=== PATIENT | female | born 1980 | race Caucasian/White ===

== ENCOUNTER 2020-04-24 10:50 | Outpatient (CLI) | payer BC ==
--- NOTE | 2020-04-24 11:23 | ULT ---
EXAM: Left lower extremity venous Doppler US HISTORY: left lower extremity edema and pain FINDINGS: Grayscale, color-flow, Doppler evaluation, spectral analysis of the left lower extremity venous struc tures is performed with 2-D imaging. The left common femoral, superficial femoral, popliteal, posterior tibial, proximal greater saphenous and profunda femoral veins are imaged. There is normal luminal compressibility, flow, and augmentation the visualized deep venous structures of the left lower extremity. IMPRESSION: No evidence of a deep vein thrombosis in the left lower extremity.
== END 2020-04-24 10:51 | disposition home or self-care (01) ==
LOC: BICULT 10:50
PROVIDERS: ATTEND Family Medicine
DX: M79.89 Other specified soft tissue disorders (principal); R79.89 Other specified abnormal findings of blood chemistry

== ENCOUNTER 2020-10-02 07:43 | Outpatient (CLI) | payer BC | END 2020-10-02 07:44 | disposition home or self-care (01) | LOC: BICMRI 07:43 | PROVIDERS: ATTEND Family Medicine | DX: M51.16 Intervertebral disc disorders with radiculopathy, lumbar region (principal); M48.07 Spinal stenosis, lumbosacral region; M51.27 Other intervertebral disc displacement, lumbosacral region | CPT/HCPCS: 72148 ==

== ENCOUNTER 2024-08-29 08:35 | Outpatient (CLI) | payer BC | END 2024-08-29 08:36 | disposition home or self-care (01) | LOC: BICMRI 08:35 | DX: G35 Multiple sclerosis (principal); R90.89 Other abnormal findings on diagnostic imaging of central nervous system | CPT/HCPCS: 70551 ==

== ENCOUNTER 2025-05-17 12:53 | Outpatient (CLI) | payer BC | END 2025-05-17 12:54 | disposition home or self-care (01) | LOC: BICMRI 12:53 | PROVIDERS: ATTEND Psychiatry & Neurology Psychiatry | DX: G35 Multiple sclerosis (principal); R90.89 Other abnormal findings on diagnostic imaging of central nervous system; I63.532 Cerebral infarction due to unspecified occlusion or stenosis of left posterior cerebral artery; G93.89 Other specified disorders of brain | CPT/HCPCS: 70551 ==

== ENCOUNTER 2025-06-05 12:40 | Outpatient (CLI) | payer BC | END 2025-06-05 12:41 | disposition home or self-care (01) | LOC: BICMRI 12:40 | PROVIDERS: ATTEND Psychiatry & Neurology Psychiatry | DX: G35.D Multiple sclerosis, unspecified (principal); M48.02 Spinal stenosis, cervical region | CPT/HCPCS: 72141 ==